=== PATIENT | female | born 1990 ===

== ENCOUNTER → 2024-09-16 | Outpatient (CLI) | payer OTHER ==
[2024-09-19 23:31] LABS: HSV 1 SUBTYPE BY PCR Not Detected; HSV 2 SUBTYPE BY PCR Not Detected; HSV SUBTYPE SOURCE SWAB R BREAST
[2024-09-21 09:43] LABS: VARICELLA-ZOSTER VIRUS BY PCR Detected; VARICELLA-ZOSTER VIRUS SOURCE SWAB R BREAST
== END ==
LOC: LAB SHORT 14:40 → LAB 14:40
PROVIDERS: Physician Assistant
DX: Z12.83 Encounter for screening for malignant neoplasm of skin (principal); R21 Rash and other nonspecific skin eruption
CPT/HCPCS: 87070; 87205; 87529; 87798